=== PATIENT | female | born 1950 | race African-American/Black ===

== ENCOUNTER 2024-03-25 11:57 | Emergency (ER) | payer SELFPAY ==
[~2024-03-25] VITALS: Ht 165.1 cm; Wt 100.0 kg
[2024-03-25 11:59] VITALS: BP 165/77; PULSE 86; RESP 16; TEMP 98.7; O2SAT 97
== END 2024-03-25 13:23 | disposition left against medical advice (07) ==
LOC: ER 11:57
DX: M25.519 Pain in unspecified shoulder (principal); Z53.21 Procedure and treatment not carried out due to patient leaving prior to being seen by health care provider